=== PATIENT | female | born 1995 | race Caucasian/White ===

== ENCOUNTER 2017-12-01 21:25 | Emergency (ER) | payer OTHER ==
[~2017-12-01] VITALS: Ht 162.6 cm; Wt 108.9 kg
[2017-12-01] MEDS ORDERED: FLEXERIL PO (21:42)
[2017-12-01] MEDS ORDERED: ABILIFY10 MG PO (21:46)
[2017-12-01] MEDS ORDERED: IBUPROFEN 600600 M1 PO (21:46)
[2017-12-01] MEDS ORDERED: TRAZODONE HCL100 MG PO (21:46)
[2017-12-01] MEDS ORDERED: PROAIR HFA8.5 GM INH (21:47)
[2017-12-01] MEDS ORDERED: ZANTAC 150MG T150 MG PO (21:47)
[2017-12-01] MEDS ORDERED: COMBIVENT INH (21:48)
== END 2017-12-01 22:11 | disposition home or self-care (01) ==
LOC: ER 21:25
DX: M54.5 Low back pain (principal); Z88.5 Allergy status to narcotic agent

== ENCOUNTER 2020-03-02 17:34 | Emergency (ER) | payer BC ==
[~2020-03-02] VITALS: Ht 162.6 cm; Wt 113.4 kg
[~2020-03-02 17:34] MED LIST: ABILIFY10 MG PO; COMBIVENT INH; FLEXERIL PO; IBUPROFEN 600600 M1 PO; PROAIR HFA8.5 GM INH; TRAZODONE HCL100 MG PO; ZANTAC 150MG T150 MG PO
[2020-03-02 17:40] VITALS: BP 133/77
[2020-03-02] MEDS ORDERED: VALACYCLOVIR1000 MG PO (18:32)
== END 2020-03-02 18:45 | disposition home or self-care (01) ==
LOC: ER 17:34
DX: B02.9 Zoster without complications (principal); E78.00 Pure hypercholesterolemia, unspecified; K21.9 Gastro-esophageal reflux disease without esophagitis